=== PATIENT | male | born 1945 | race Caucasian/White ===

== ENCOUNTER 2017-05-16 14:04 | Inpatient (IN) | payer OTHER ==
[~2017-05-16] VITALS: Ht 170.2 cm; Wt 96.4 kg
[~2017-05-16 14:04] MED LIST: ASPIR 8181 M1 PO; ASPIRIN81 M2 PO; ATORVASTATIN CA40 MG PO; COLACE100 MG PO; EMS NITROSTAT0.4 M1 SL; GABAPENTIN100 MG PO; GABAPENTIN300 MG PO; ICAPS TABLET1 EACH PO; ISOSORBIDE MONO60 MG PO; LOPRESSOR25 MG PO; METOPROLOL TART25 MG PO; NITROSTAT0.4 MG SL; PLAVIX75 MG PO; RANEXA500 MG PO; SPIRIVA1 INHALATI IH; TERBINAFINE HC250 MG PO; TYLENOL PM EX-1 EACH PO; Toprol XL PO; VENTOLIN HFA18 GM IH; Zocor PO
[2017-05-16 15:07] LABS: HEMATOCRIT 45.2 % (38.0-50.0); HEMOGLOBIN 15.4 G/DL (12.5-16.6); MCH 30.3 PG (29.0-34.0); MCHC 34.1 G/DL (30.0-36.0); MCV 88.8 FL (86-99); PLATELET COUNT 115 K/uL (156-360); RBC DIS.WIDTH-CV 12.6 % (11.8-14.6); RBC DIS.WIDTH-SD 41.1 % (39-53); RED BLOOD COUNT 5.09 M/uL (4.00-5.50); WHITE BLOOD COUNT 10.4 K/uL (4.1-10.2)
[2017-05-16 15:15] LABS: CHLORIDE 106 mEq/L (99-109); POTASSIUM 4.7 mEq/L (3.7-5.4); SODIUM 141 mEq/L (136-147)
[2017-05-16 15:17] LABS: GLUCOSE 115 mg/dL (70-99)
[2017-05-16 15:21] LABS: GFR ESTIMATE (CALCULATED) > 59 mL/min/ (58.99-99999); UREA NITROGEN (BUN) 13 mg/dL (9-23)
[2017-05-16 15:27] LABS: TROP-I INTERPRETATION INDETERMINATE; TROPONIN-I 0.42 ng/mL (0.0-0.30)
[2017-05-16] MEDS ORDERED: ALBUTEROL2.5 MG/3 M IH (16:03)
[2017-05-16 16:29] LABS: INTER. NORMALIZED RATIO 1.1
[2017-05-16 16:31] LABS: PTT 31.2 SEC (25-37)
[2017-05-16 17:20] VITALS: BP 129/63
[2017-05-16 18:29] LABS: TROP-I INTERPRETATION POSITIVE
[2017-05-16 19:24] VITALS: BP 113/64
[2017-05-16 23:09] VITALS: BP 125/66
[2017-05-16 23:25] LABS: TROP-I INTERPRETATION POSITIVE; TROPONIN-I 4.58 ng/mL (0.0-0.30)
[2017-05-17 01:18] LABS: TROP-I INTERPRETATION POSITIVE
[2017-05-17 01:19] LABS: TROPONIN-I 4.13 ng/mL (0.0-0.30)
[2017-05-17 05:33] VITALS: BP 103/53
[2017-05-17 06:25] LABS: HEMATOCRIT 44.4 % (38.0-50.0); HEMOGLOBIN 14.9 G/DL (12.5-16.6); MCH 29.9 PG (29.0-34.0); MCHC 33.6 G/DL (30.0-36.0); MCV 89.2 FL (86-99); PLATELET COUNT 122 K/uL (156-360); RBC DIS.WIDTH-CV 12.8 % (11.8-14.6); RBC DIS.WIDTH-SD 41.8 % (39-53); RED BLOOD COUNT 4.98 M/uL (4.00-5.50); WHITE BLOOD COUNT 8.1 K/uL (4.1-10.2)
[2017-05-17 06:51] LABS: ALBUMIN 3.4 G/DL (3.2-4.8); ALKALINE PHOSPHATASE 84 IU/L (3-129); ALT (GPT) 59 IU/L (3-49); AST (GOT) 69 IU/L (2-34); CHLORIDE 105 MEQ/L (99-109); CREATININE 0.8 MG/DL (0.6-1.3); GFR ESTIMATE (CALCULATED) > 59 mL/min/ (58.99-99999); GLUCOSE 114 mg/dL (70-99); POTASSIUM 4.8 MEQ/L (3.7-5.4); SODIUM 141 MEQ/L (136-147); TOTAL BILIRUBIN 0.9 MG/DL (0.0-1.0); TOTAL PROTEIN 6.1 G/DL (6.4-8.3); TROP-I INTERPRETATION POSITIVE; TROPONIN-I 3.65 ng/mL (0.0-0.30); UREA NITROGEN (BUN) 15 mg/dL (9-23)
[2017-05-17 08:53] VITALS: BP 123/80
[2017-05-17 11:53] VITALS: BP 109/60
[2017-05-17 12:39] LABS: INTER. NORMALIZED RATIO 1.1
[2017-05-17 16:01] VITALS: BP 123/73
[2017-05-17 19:54] VITALS: BP 143/67
[2017-05-18 00:15] VITALS: BP 149/70
[2017-05-18 03:31] VITALS: BP 118/57
[2017-05-18 06:01] LABS: HEMATOCRIT 42.4 % (38.0-50.0); HEMOGLOBIN 14.4 G/DL (12.5-16.6); MCH 29.9 PG (29.0-34.0); PLATELET COUNT 121 K/uL (156-360); RBC DIS.WIDTH-CV 12.7 % (11.8-14.6); RBC DIS.WIDTH-SD 41.2 % (39-53); RED BLOOD COUNT 4.82 M/uL (4.00-5.50); WHITE BLOOD COUNT 5.8 K/uL (4.1-10.2)
[2017-05-18 08:07] VITALS: BP 128/72
[2017-05-18 11:36] VITALS: BP 140/84
[2017-05-18 14:47] VITALS: BP 129/78
[2017-05-18 19:30] VITALS: BP 134/66
[2017-05-19 00:05] VITALS: BP 113/56
[2017-05-19 03:15] LABS: CHLORIDE 104 mEq/L (99-109); POTASSIUM 5.1 mEq/L (3.7-5.4); SODIUM 138 mEq/L (136-147)
[2017-05-19 03:16] LABS: GLUCOSE 93 mg/dL (70-99)
[2017-05-19 03:20] LABS: CREATININE 1.1 mg/dL (0.6-1.3); GFR ESTIMATE (CALCULATED) > 59 mL/min/ (58.99-99999)
[2017-05-19 03:21] LABS: UREA NITROGEN (BUN) 16 mg/dL (9-23)
[2017-05-19 03:32] VITALS: BP 122/74
[2017-05-19 08:34] VITALS: BP 111/69
[2017-05-19 17:04] VITALS: BP 136/71
[2017-05-19 20:41] VITALS: BP 114/60
[2017-05-19 23:34] VITALS: BP 127/68
[2017-05-20 02:48] VITALS: BP 128/67
[2017-05-20 04:39] LABS: HEMATOCRIT 40.9 % (38.0-50.0); HEMOGLOBIN 14.3 G/DL (12.5-16.6); MCH 30.5 PG (29.0-34.0); MCV 87.2 FL (86-99); PLATELET COUNT 100 K/uL (156-360); RBC DIS.WIDTH-CV 12.6 % (11.8-14.6); RBC DIS.WIDTH-SD 39.8 % (39-53); RED BLOOD COUNT 4.69 M/uL (4.00-5.50); WHITE BLOOD COUNT 5.9 K/uL (4.1-10.2)
[2017-05-20 09:20] VITALS: BP 135/83
[2017-05-20] MEDS ORDERED: ATORVASTATIN CA40 MG PO (11:12)
[2017-05-20] MEDS ORDERED: IMDUR60 MG PO (11:13)
[2017-05-20] MEDS ORDERED: LOPRESSOR25 MG PO (11:16)
[2017-05-20] MEDS ORDERED: LISINOPRIL2.5 MG PO (11:49)
== END 2017-05-20 14:00 | disposition home or self-care (01) | DRG 281 ==
LOC: EME 14:04 → 4EAST 16:00 → EDOF 16:00 → ENRESERV 16:06 → 4EAST 17:13 → ENPENDDIS 05-20 → 4EAST 05-20 14:00
PROVIDERS: Hospitalist; Internal Medicine; Internal Medicine Cardiovascular Disease; Physician Assistant
DX: I21.4 Non-ST elevation (NSTEMI) myocardial infarction (principal); T82.855A Stenosis of coronary artery stent, initial encounter; J98.11 Atelectasis; J90 Pleural effusion, not elsewhere classified; I47.2 Ventricular tachycardia; F33.9 Major depressive disorder, recurrent, unspecified; J44.9 Chronic obstructive pulmonary disease, unspecified; Y83.1 Surgical operation with implant of artificial internal device as the cause of abnormal reaction of the patient, or of later complication, without mention of misadventure at the time of the procedure; B18.2 Chronic viral hepatitis C; E78.5 Hyperlipidemia, unspecified; I10 Essential (primary) hypertension; I45.10 Unspecified right bundle-branch block; I48.2 Chronic atrial fibrillation; M51.34 Other intervertebral disc degeneration, thoracic region; I25.119 Atherosclerotic heart disease of native coronary artery with unspecified angina pectoris; G47.00 Insomnia, unspecified; E66.9 Obesity, unspecified; I25.2 Old myocardial infarction; Z91.14 Patient's other noncompliance with medication regimen; Z91.19 Patient's noncompliance with other medical treatment and regimen; Z87.891 Personal history of nicotine dependence; Z79.82 Long term (current) use of aspirin; Z79.02 Long term (current) use of antithrombotics/antiplatelets; Z95.1 Presence of aortocoronary bypass graft; Z91.041 Radiographic dye allergy status; Z85.118 Personal history of other malignant neoplasm of bronchus and lung; Z90.2 Acquired absence of lung [part of]; Z87.11 Personal history of peptic ulcer disease; Z68.33 Body mass index [BMI] 33.0-33.9, adult; Z82.49 Family history of ischemic heart disease and other diseases of the circulatory system
CPT/HCPCS: 71046; 80048; 80053; 84484; 85027; 85347; 85610; 85730; 93005; 94640; 94640 76; 99202; 99281; 99285; C1750; C1769; C1887; J0461; J1644; J2250; J3010; S0028